=== PATIENT | male | born 1985 | race Caucasian/White ===

== ENCOUNTER 2016-12-09 01:38 | Emergency (ER) | payer BC ==
[~2016-12-09] VITALS: Ht 182.9 cm; Wt 104.3 kg
[2016-12-09 01:40] VITALS: BP 197/119
[2016-12-09] MEDS ORDERED: MAG HYDROX/AL HYDROX/SIMETH 30 ML UDC PO ONE (02:30)
[2016-12-09] MEDS ORDERED: oxyCODONE/APAP (5/325 MG) 1 UDTAB TABLET PO ONE (02:30)
[2016-12-09] MEDS ORDERED: DICYCLOMINE HCL 10 MG CAPSULE PO ONE ×2 (02:30→02:46)
[2016-12-09] MEDS ORDERED: LIDOCAINE VISCOUS 2% UD 15 ML UDC MM ONE (02:30)
[2016-12-09] MEDS ORDERED: MAG HYDROX/AL HYDROX/SIMETH 30 ML UDC ONE (02:46)
[2016-12-09] MEDS ORDERED: oxyCODONE/APAP (5/325 MG) 1 UDTAB TABLET ONE (02:47)
[2016-12-09] MEDS ORDERED: LIDOCAINE VISCOUS 2% UD 15 ML UDC ONE (02:47)
== END 2016-12-09 03:57 | disposition home or self-care (01) ==
LOC: ER 01:38
DX: R10.84 Generalized abdominal pain (principal); G89.29 Other chronic pain; F90.9 Attention-deficit hyperactivity disorder, unspecified type; I10 Essential (primary) hypertension; Z76.5 Malingerer [conscious simulation]
CPT/HCPCS: 99284; A4606; Z7610

== ENCOUNTER 2017-07-30 18:25 | Emergency (ER) | payer BC ==
[~2017-07-30] VITALS: Ht 180.3 cm; Wt 81.6 kg
[2017-07-30] MEDS ORDERED: MAG HYDROX/AL HYDROX/SIMETH 30 ML UDC ONE (18:48)
[2017-07-30] MEDS ORDERED: ONDANSETRON 4 MG TAB.RAPDIS ONE (18:48)
[2017-07-30] MEDS ORDERED: LIDOCAINE VISCOUS 2% UD 15 ML UDC ONE (18:48)
[2017-07-30] MEDS ORDERED: DICYCLOMINE HCL 10 MG CAPSULE PO ONE ×2 (18:48→19:00)
[2017-07-30] MEDS ORDERED: LIDOCAINE 1% INJ 50 ML MDV IJ ONE (19:00)
[2017-07-30] MEDS ORDERED: LIDOCAINE VISCOUS 2% UD 15 ML UDC MM ONE (19:00)
[2017-07-30] MEDS ORDERED: MAG HYDROX/AL HYDROX/SIMETH 30 ML UDC PO ONE (19:00)
[2017-07-30] MEDS ORDERED: ONDANSETRON 4 MG TAB.RAPDIS SL ONE (19:00)
[2017-07-30 19:03] LABS: BASOPHILS # (AUTO) 0.1 /CMM (0.0-0.2); BASOPHILS % (AUTO) 0.9 % (0.0-2.0); EOSINOPHILS % (AUTO) 0.1 % (0.0-6.0); HEMATOCRIT 41 % (39-51); HEMOGLOBIN 13.6 g/dL (13.5-17.5); LYMPHOCYTES # (AUTO) 0.7 /CMM (0.8-4.8); LYMPHOCYTES % (AUTO) 6.9 % (20.0-44.0); MEAN CORPUSCULAR HEMOGLOBIN 27 PG (26.0-33.0); MEAN CORPUSCULAR HGB CONC 33 g/dl (31.0-36.0); MEAN CORPUSCULAR VOLUME 82 fL (80-96); MONOCYTES # (AUTO) 0.2 /CMM (0.1-1.30); MONOCYTES % (AUTO) 1.5 % (2.0-12.0); NEUTROPHILS # (AUTO) 9.3 /CMM (1.8-8.9); NEUTROPHILS % (AUTO) 90.6 % (43.0-81.0); PLATELET COUNT (AUTO) 294 /CMM (150-450); RDW COEFFICIENT OF VARIATION 11.6 (11.5-15.0); RED BLOOD CELL COUNT(AUTO) 5.02 MIL/uL (4.5-6.0); WHITE BLOOD COUNT (AUTO) 10.3 K/uL (4.3-11.0)
[2017-07-30 19:15] LABS: CALCIUM, SERUM 9.6 mg/dL (8.5-10.1); CREATININE 0.8 mg/dL (0.6-1.3)
[2017-07-30 19:46] LABS: ALBUMIN 4.2 g/dL (3.4-5.0); BILIRUBIN,DIRECT 0.1 mg/dL (0.0-0.2); BILIRUBIN,TOTAL 0.4 mg/dL (0.2-1.0); TOTAL PROTEIN, SERUM 7.8 g/dL (6.4-8.2)
[2017-07-30] MEDS ORDERED: FAMOTIDINE (20 MG) 20 MG TABLET ONE (20:05)
--- NOTE | 2017-07-30 20:09 | NUR ---
ASSUMED CARE FOR D/C PURPOSES ONLY. Patient discharged to home in stable condition. Written and verbal after care instructions given. Patient verbalizes understanding of instruction AND RX. PT INSTRUCTED TO F/U WITH PMD AND GI. VSS
[2017-07-30 20:11] VITALS: BP 148/75
[2017-07-30] MEDS ORDERED: FAMOTIDINE (20 MG) 20 MG TABLET PO ONE (20:30)
== END 2017-07-30 20:11 | disposition home or self-care (01) ==
LOC: ER 18:28
DX: R10.13 Epigastric pain (principal); R11.2 Nausea with vomiting, unspecified; I10 Essential (primary) hypertension; F41.9 Anxiety disorder, unspecified; F90.9 Attention-deficit hyperactivity disorder, unspecified type
CPT/HCPCS: 36415; 80048-TC; 80076-TC; 83690-TC; 85025-TC; A4606; Q0162; Z7610